=== PATIENT | female | born 1970 | race Caucasian/White ===

== ENCOUNTER 2018-04-08 05:26 | Observation (INO) | payer OTHER, BC ==
[2018-04-08] MEDS ORDERED: ROPIVACAINE 0.5 % 30 ML VIAL ×2 (06:50→06:55)
[2018-04-08] MEDS ORDERED: DEXAMETHASONE 4 MG/ML 1 ML INJ ×2 (06:50→07:39)
[2018-04-08] MEDS ORDERED: MIDAZOLAM 1 MG/ML 2 ML INJ (06:52)
[2018-04-08] MEDS ORDERED: VERAPAMIL 5 MG INJ (06:52)
[2018-04-08] MEDS ORDERED: CEFAZOLIN 1 GM INJ (07:00)
[2018-04-08] MEDS ORDERED: SEVOFLURANE 15 MIN (07:00)
[2018-04-08] MEDS ORDERED: ONDANSETRON 4 MG INJ (07:40)
[2018-04-08] MEDS: POLYMYXIN/BACITRACIN 1L IRRIG (08:24)
[2018-04-08] MEDS ORDERED: KETOROLAC 30 MG INJ (10:42)
[2018-04-08] MEDS: ROPIVACAINE 0.5 % 30 ML VIAL (11:30)
[2018-04-08] MEDS: POVIDONE IODINE 10% 28.4 GM OINT (11:31)
[2018-04-08] MEDS ORDERED: NEOSTIGMINE 3 MG/3 ML SYRINGE (12:00)
[2018-04-08] MEDS ORDERED: GLYCOPYRROLATE 0.4 MG INJ (12:00)
[2018-04-08] MEDS ORDERED: SOD CHLORIDE 0.9% 1,000 ML IV (12:07)
[2018-04-08] MEDS ORDERED: ONDANSETRON 4 MG INJ IV ×3 (12:30→16:00)
[2018-04-08] MEDS: SOD CHLORIDE 0.9% 1,000 ML IV ×3 (12:30→22:30)
[2018-04-08] MEDS ORDERED: morphine 2 MG INJ IV ×2 (12:30→12:45)
[2018-04-08] MEDS ORDERED: OXYCODONE/ACETAMINOPHEN (5/325) TAB PO ×5 (12:30→16:00)
[2018-04-08] MEDS ORDERED: LABETALOL HCL 20MG INJ IV (16:00)
[2018-04-08] MEDS ORDERED: hydrALAzine 20 MG INJ IV (16:00)
[2018-04-08] MEDS ORDERED: FENTAnyl 50 MCG/ML VIAL IV ×3 (16:00)
[2018-04-08] MEDS ORDERED: DIPHENHYDRAMINE 50 MG INJ IV (16:00)
[2018-04-08] MEDS ORDERED: MIDAZOLAM 1 MG/ML 2 ML INJ IV (16:00)
[2018-04-08] MEDS ORDERED: EPHEDrine SULFATE 50 MG/5 ML SYG IV (16:00)
[2018-04-08] MEDS ORDERED: KETOROLAC 30 MG INJ IV (16:00)
[2018-04-08] MEDS ORDERED: MEPERIDINE 25 MG INJ IV (16:00)
[2018-04-08] MEDS ORDERED: HYDROmorphONE 1 MG/5 ML IV SYRINGE IV ×3 (16:00)
[2018-04-09] MEDS: OXYCODONE/ACETAMINOPHEN (5/325) TAB PO ×2 (06:29→12:02)
[2018-04-09] MEDS: SOD CHLORIDE 0.9% 1,000 ML IV (08:30)
== END 2018-04-09 12:36 | disposition home or self-care (01) ==
LOC: SDS 05:26 → REC 12:07 → MS1 15:30
DX: M19.071 Primary osteoarthritis, right ankle and foot (principal)
CPT/HCPCS: 29899; 73610-RT; 84703; 97161